=== PATIENT | male | born 1950 | race Caucasian/White ===

== ENCOUNTER 2018-01-03 16:05 | Emergency (ER) | payer MEDICARE ==
[~2018-01-03] VITALS: Ht 182.9 cm; Wt 81.7 kg
[~2018-01-03 16:05] MED LIST: CIPRO500 MG PO; FLAGYL500 MG PO; HYDROCODONE-AP1 EAC6 PO; PRINIVIL20 MG PO
[2018-01-03 16:29] LABS: ABSOLUTE EOSINOPHILS 0.1 thou/uL (0.0-0.7); ABSOLUTE MONOCYTES 0.3 thou/uL (0.0-1.2); BASOPHILS 0.5 %; EOSINOPHILS 1.8 %; HEMATOCRIT 44.6 % (42.0-52.0); HEMOGLOBIN 14.7 gm/dL (14.0-18.0); LYMPHOCYTES 30.3 %; MCH 29.6 pg (26.0-34.0); MCHC 32.9 g/dL (28.0-37.0); MCV 89.8 fL (80.0-100.0); MONOCYTES 5.3 %; MPV 10.3 fl. (7.2-11.1); NUCLEATED RBCS 0 /100WBC; PLATELET COUNT* 157 thou/uL (150-400); POLYS 62.1 %; RBC 4.97 mil/uL (4.50-6.00); RDW-CV 12.3 % (10.5-14.5); WBC 6.5 thou/uL (4.0-11.0)
[2018-01-03 16:43] LABS: CALCIUM 9.1 mg/dL (8.5-10.1); CREATININE 1.1 mg/dL (0.6-1.3); POTASSIUM 4.2 mmol/L (3.5-5.1)
[2018-01-03 16:48] LABS: ALBUMIN 3.6 g/dL (3.4-5.0); TOTAL BILIRUBIN 0.7 mg/dL (<0.1-1.0); TOTAL PROTEIN 7.6 g/dL (6.4-8.2)
[2018-01-03] MEDS ORDERED: HYDROCODONE-AP1 EAC6 PO (18:02)
[2018-01-03] MEDS ORDERED: OMEPRAZOLE 20 M20 M1 PO (18:28)
[2018-01-03] MEDS ORDERED: CARAFATE1 GM/10 ML PO (18:28)
[2018-01-03] MEDS ORDERED: PHENERGAN 25 MG25 M1 PO (18:45)
[2018-01-03 18:47] VITALS: BP 145/78
== END 2018-01-03 18:48 | disposition home or self-care (01) ==
LOC: M.ERS 16:05
PROVIDERS: Physician Assistant
DX: R10.9 Unspecified abdominal pain (principal); R11.0 Nausea; I10 Essential (primary) hypertension